=== PATIENT | male | born 1970 | race Caucasian/White ===

== ENCOUNTER 2023-05-14 12:25 | Emergency (ER) | payer OTHER, SELFPAY ==
--- NOTE | ~2023-05-14 | XR_ITS ---
XR knee RT min 4V DATE: 05/14/2023 12:58 INDICATION: Lateral and anterior right knee pain for 3 weeks. No known injury. TECHNIQUE: [place] and standing AP, PA and lateral views COMPARISON: None FINDINGS: Mild superior pole patellar enthesopathy at quadriceps tendon insertion site. Minimal peria rticular spurring of the patella. Knee joint spaces are well preserved. No fracture or dislocation is evident. Small suprapatellar burs a joint effusion is suggested. No fracture or dislocation, periosteal reaction or bone destruction, radiopaque intra-articular loose body or chondrocalcinosis is noted. IMPRESSION: Small suprapatellar knee joint effusion is suggested Mild osteoarthritis Reviewed, dictated and finalized at location B. [employer]
[2023-05-14 12:31] VITALS: BP 159/96; PULSE 80; RESP 16; TEMP 36.8; O2SAT 100
--- NOTE | 2023-05-14 13:02 | ED.EXTPRO ---
HPI - Extremity Problem General Chief complaint: Extremity Problem,Nontraumatic Stated complaint: Knee/Leg pain Time Seen by Provider: 05/14/23 12:50 Source: patient and RN notes reviewed Mode of arrival: ambulatory (With cane) Limitations: no limitations History of Present Illness HPI Narrative: Patient presents today with a 3 week history of right lateral knee pain. States he woke up with the pain 3 weeks ago and denies any known recent injury. States it was injured several times 20-25 years ago when he played sports. Pain increases with rotation of the knee. He does report some occasional tingling with ambulation to the live. He has been ambulating with a cane due to his pain, and states he thought his pain was improving until last night when it popped again and increased his pain. He has tried Tylenol, ibuprofen, and aspirin without much relief. Related Data Home Medications Medication Instructions Recorded Confirmed No Home Medications 05/14/23 05/14/23 Allergies Allergy/AdvReac Type Severity Reaction Status Date / Time No Known Allergies Allergy Unverified 05/14/23 12:55 Review of Systems Review of Systems: CONSTITUTIONAL: Denies body aches, fever, chills, or sweats. EYES: Denies visual changes, redness, or discharge. ENT: Denies rhinorrhea, congestion, sore throat, or otalgia. CARDIOVASCULAR: Denies chest pain, palpitations, or edema. RESPIRATORY: Denies cough or dyspnea. GASTROINTESTINAL: Denies abdominal pain, nausea, vomiting, or diarrhea. GENITOURINARY: Denies dysuria or hematuria. SKIN: Denies rash, itching, or wounds. MUSCULOSKELETAL: Denies back pain, or myalgia.+ right knee pain NEUROLOGIC: Denies headache, numbness, or weakness.+ right lower leg tingling PSYCH: Denies depression or anxiety. PMFSH Comments At time of signature, I have reviewed and agree with nursing past medical, surgical, social and family history unless otherwise noted. Please see nursing chart for further information. There is no relevant family history pertinent to the presenting complaint Exam Narrative: GENERAL: Well-appearing, well-nourished, and in no acute distress. HEAD: Normocephalic, atraumatic. EYES: EOMI. No redness or drainage. Conjunctivae normal. ENT: Mucous membranes pink and moist. NECK: Normal AROM. CHEST: No respiratory distress. EXTREMITIES: Right knee: Patient localizes pain to the posterior lateral area, but this area is nontender, as is the rest of the knee. No edema or effusion noted. Pain with internal and external rotation as well as full extension. Distal sensation intact. Capillary refill normal. Pedal pulse normal. Color normal. SKIN: Warm, dry, no rash. Capillary refill normal. Normal skin turgor. NEURO: No focal deficits. Alert and oriented x3. Gait steady. PSYCH: Normal affect. No signs of depression or anxiety. Course Course Level of Care: Express Care Visit Vital Signs Vital signs: Vital Signs Temperature 98.2 F 05/14/23 12:31 Pulse Rate 80 05/14/23 12:31 Respiratory Rate 16 05/14/23 12:31 Blood Pressure 159/96 H 05/14/23 12:31 Pulse Oximetry 100 05/14/23 12:31 Oxygen Delivery Room Air 05/14/23 12:31 Temperature 98.2 F 05/14/23 12:31 Pulse Rate 80 05/14/23 12:31 Respiratory Rate 16 05/14/23 12:31 Blood Pressure 159/96 H 05/14/23 12:31 Pulse Oximetry 100 05/14/23 12:31 Oxygen Delivery Room Air 05/14/23 12:31 Reviewed MDM - Extremity (Nontraumatic) MDM Narrative Medical decision making narrative: X-ray shows small supra patellar effusion, bone spur, and mild osteoarthritis. Discussed results with patient. Discussed conservative treatment with orthopedic follow-up. Agrees with plan. Anticipatory guidance given. Differential Diagnosis Differential diagnosis: Likely other (Knee strain, ligamentous injury, meniscus injury, effusion, fracture) Imaging Data Radiologist's impression: ITS Impressions Kn
== END 2023-05-14 13:17 | disposition home or self-care (01) ==
PROVIDERS: Emergency Provider Nurse Practitioner
DX: M25.561 Pain in right knee (principal); I10 Essential (primary) hypertension
CPT/HCPCS: 73564; 99203; G0463